=== PATIENT | male | born 1950 | race Caucasian/White ===

== ENCOUNTER 2021-03-23 13:43 | Outpatient (CLI) | payer MEDICARE | END 2021-03-23 13:44 | disposition home or self-care (01) | LOC: CTENTCT 13:43 | PROVIDERS: ATTEND Specialist | DX: J34.2 Deviated nasal septum (principal) | CPT/HCPCS: 70486 ==

== ENCOUNTER 2021-05-08 09:07 | Inpatient (IN) | payer MEDICARE ==
[2021-05-08] MEDS ORDERED: Acetaminophen 325 MG TAB PO PRN (10:13)
[2021-05-08] MEDS ORDERED: Zolpidem Tartrate 5 MG TAB PO PRN (10:13)
[2021-05-08] MEDS ORDERED: Nitroglycerin 0.4 MG TAB (25 Tab Bottle) SL PRN (10:13)
[2021-05-08] MEDS ORDERED: Milk Of Magnesia 30 ML UDCUP PO PRN (10:13)
[2021-05-08] MEDS: Sodium Chloride 0.9% 1,000 ML IV SCH ×2 (10:25→23:52)
[2021-05-08 11:06] LABS: #Basophils 0.1 thou/uL (0.0-0.2); #Eosinphils 0.4 thou/uL (0.0-0.7); #Lymphocytes 1.6 thou/uL (1.20-3.40); #Monocytes 0.5 thou/uL (0.11-0.59); #Neutrophils 4.3 thou/uL (1.40-6.50); %Basophils 0.8 % (0.0-1.0); %Eosinophils 6.3 % (0.0-10.0); %Lymphocytes 23.5 % (21.0-51.0); %Neutrophils 62.4 % (42.0-75.0); Hemoglobin 14.5 g/dL (14.0-18.0); Mean Corpuscular HGB CONC 33.3 g/dL (32.0-36.0); Mean Corpuscular Hemoglobin 32.4 pg (27.0-31.0); Mean Corpuscular Volume 97.2 fL (78.0-98.0); Mean Platelet Volume 7.7 fL (7.4-10.4); Platelet Count 183 thou/uL (130-400); RBC Distribution Width 12.8 % (11.5-14.5); Red Blood Cell (RBC) Count 4.48 mill/uL (4.70-6.10); White Blood Cell (WBC) Count 6.8 thou/uL (4.8-10.8)
[2021-05-08 11:32] LABS: ALT (SGPT) 16 U/L (8-55); AST (SGOT) 18 U/L (5-34); Albumin 3.5 g/dL (3.4-4.8); Alkaline Phosphatase 118 U/L (40-110); Anion Gap 13 mmol/L (10-20); BUN (Urea Nitrogen) 39 mg/dL (8.4-25.7); Bilirubin, Total 0.6 mg/dL (0.2-1.2); Calc. Creatinine Clearance 0 mL/min (70-130); Calcium 9.3 mg/dL (7.8-10.44); Carbon Dioxide 25 mmol/L (23-31); Chloride 103 mmol/L (98-107); Cholesterol 111 mg/dl (< 200 Desired); Globulin 3.5 g/dL (2.4-3.5); Glucose 166 mg/dL (83-110); HDL Cholesterol 28 mg/dL (>60 Neg Risk); LDL Cholesterol, Calculated 36 mg/dL; Potassium 4.4 mmol/L (3.5-5.1); Sodium 137 mmol/L (136-145); Triglycerides 235 mg/dL (Less than 150)
[2021-05-08 12:48] VITALS: BMI 37.8
[2021-05-08] MEDS ORDERED: HOLD HYPOGLYCEMIC MEDS AM OF CATH FS SCH (15:45)
[2021-05-08] MEDS ORDERED: HOLD HYPOGLYCEMIC MEDS AM OF CATH PO SCH (15:45)
[2021-05-08 16:46] LABS: SARS-CoV-2 PCR by NAA Not Detected (NotDetected)
[2021-05-08] MEDS: Simvastatin 20 MG TAB PO SCH (21:48)
[2021-05-08] MEDS: Metoprolol Tartrate 50 MG TAB PO SCH (21:48)
[2021-05-08] MEDS: Sodium Bicarbonate Tab 325 MG TAB PO SCH (21:48)
[2021-05-08] MEDS: Docusate 100 MG CAP PO SCH (21:49)
[2021-05-09] MEDS: Metoprolol Tartrate 50 MG TAB PO SCH ×3 (05:47→22:05)
[2021-05-09] MEDS ORDERED: Sodium Chloride 0.9% 1,000 ML IV SCH (06:00)
[2021-05-09 06:35] LABS: Anion Gap 13 mmol/L (10-20); BUN (Urea Nitrogen) 35 mg/dL (8.4-25.7); Calc. Creatinine Clearance 42 mL/min (70-130); Calcium 9.4 mg/dL (7.8-10.44); Carbon Dioxide 25 mmol/L (23-31); Chloride 102 mmol/L (98-107); Glucose 150 mg/dL (83-110); Potassium 4.4 mmol/L (3.5-5.1); Sodium 136 mmol/L (136-145)
[2021-05-09] MEDS ORDERED: Midazolam HCl 2 mg/2 ml Vial ONE (08:07)
[2021-05-09] MEDS ORDERED: Heparin 10,000 UNITS/ 10 ML VIAL ONE (08:07)
[2021-05-09] MEDS ORDERED: Fentanyl 100 MCG/2 ML VIAL ONE (08:08)
[2021-05-09] MEDS ORDERED: Communication Order-Pharmacy FS SCH (08:45)
[2021-05-09] MEDS: Sodium Chloride 0.9% 1,000 ML IV SCH ×2 (09:48→22:01)
[2021-05-09] MEDS: Sodium Bicarbonate Tab 325 MG TAB PO SCH ×2 (09:49→22:00)
[2021-05-09] MEDS: Tamsulosin HCl 0.4 MG CAP PO SCH (09:50)
[2021-05-09] MEDS: Allopurinol 300 MG TAB PO SCH (09:50)
[2021-05-09] MEDS: Docusate 100 MG CAP PO SCH ×2 (09:50→22:00)
[2021-05-09] MEDS ORDERED: Metoprolol Tartrate 25 MG TAB PO SCH (13:30)
[2021-05-09] MEDS: Simvastatin 20 MG TAB PO SCH (22:03)
[2021-05-10 05:17] LABS: Anion Gap 11 mmol/L (10-20); BUN (Urea Nitrogen) 33 mg/dL (8.4-25.7); Calc. Creatinine Clearance 43 mL/min (70-130); Calcium 8.9 mg/dL (7.8-10.44); Carbon Dioxide 25 mmol/L (23-31); Chloride 105 mmol/L (98-107); Glucose 153 mg/dL (83-110); Potassium 4.4 mmol/L (3.5-5.1); Sodium 137 mmol/L (136-145)
[2021-05-10] MEDS ORDERED: Sodium Chloride 0.9% 1,000 ML IV SCH ×3 (06:00→14:00)
[2021-05-10] MEDS ORDERED: Heparin 10,000 UNITS/ 10 ML VIAL ONE (06:29)
[2021-05-10] MEDS ORDERED: Fentanyl 100 MCG/2 ML VIAL ONE (07:02)
[2021-05-10] MEDS ORDERED: Midazolam HCl 2 mg/2 ml Vial ONE (07:02)
[2021-05-10] MEDS ORDERED: Nitroglycerin 4.9 GM Bottle ONE (07:43)
[2021-05-10] MEDS ORDERED: Protamine Sulfate 50 MG/5 ML VIAL ONE (07:43)
[2021-05-10] MEDS ORDERED: Sodium Chloride 0.9% 200 ML IV PRN (07:59)
[2021-05-10] MEDS ORDERED: Nitroglycerin 0.4 MG TAB (25 Tab Bottle) SL PRN (07:59)
[2021-05-10] MEDS ORDERED: Acetaminophen/Codeine 30-300mg Tablet PO PRN ×2 (07:59)
[2021-05-10] MEDS ORDERED: Iopamidol 370 76% 100 ML VIAL ONE (10:54)
[2021-05-10] MEDS: Sodium Bicarbonate Tab 325 MG TAB PO SCH ×2 (10:57→21:18)
[2021-05-10] MEDS: Tamsulosin HCl 0.4 MG CAP PO SCH (10:58)
[2021-05-10] MEDS: Allopurinol 300 MG TAB PO SCH (10:58)
[2021-05-10] MEDS: Docusate 100 MG CAP PO SCH ×2 (10:58→21:19)
[2021-05-10] MEDS: Metoprolol Tartrate 100 MG TAB PO SCH ×2 (10:59→21:18)
[2021-05-10] MEDS ORDERED: Dextrose 5% in Water 1,000 ML IV PRN (13:53)
[2021-05-10] MEDS ORDERED: Dextrose 50% Abboject 50 ML SYRINGE SLOW IVP PRN (13:53)
[2021-05-10] MEDS ORDERED: HumaLOG 300 UNITS/3 ML VIAL SC PRN ×2 (13:53)
[2021-05-10] MEDS: Simvastatin 20 MG TAB PO SCH (21:18)
[2021-05-11 04:57] LABS: Anion Gap 11 mmol/L (10-20); BUN (Urea Nitrogen) 29 mg/dL (8.4-25.7); Calc. Creatinine Clearance 47 mL/min (70-130); Calcium 8.9 mg/dL (7.8-10.44); Carbon Dioxide 24 mmol/L (23-31); Chloride 107 mmol/L (98-107); Glucose 143 mg/dL (83-110); Potassium 4.2 mmol/L (3.5-5.1); Sodium 138 mmol/L (136-145)
[2021-05-11 08:22] VITALS: TEMP 97.7
[2021-05-11] MEDS: Sodium Bicarbonate Tab 325 MG TAB PO SCH (09:29)
[2021-05-11] MEDS: Allopurinol 300 MG TAB PO SCH (09:29)
[2021-05-11] MEDS: Tamsulosin HCl 0.4 MG CAP PO SCH (09:30)
[2021-05-11] MEDS: Metoprolol Tartrate 100 MG TAB PO SCH (09:30)
[2021-05-11] MEDS: Docusate 100 MG CAP PO SCH (09:30)
[2021-05-11 10:10] VITALS: BP 134/86
== END 2021-05-11 10:00 | disposition home or self-care (01) | DRG 287 ==
LOC: NEURO 09:07 → EDSTATUS 05-09 08:57
PROVIDERS: ADMIT Internal Medicine Cardiovascular Disease; ATTEND Internal Medicine Cardiovascular Disease
PROC: 4A023N7 Measurement of Cardiac Sampling and Pressure, Left Heart, Percutaneous Approach (ICD-10-PCS; principal; 2021-05-10)
PROC: B2111ZZ Fluoroscopy of Multiple Coronary Arteries using Low Osmolar Contrast (ICD-10-PCS; 2021-05-10)
DX: I25.10 Atherosclerotic heart disease of native coronary artery without angina pectoris (principal); N18.4 Chronic kidney disease, stage 4 (severe); K92.2 Gastrointestinal hemorrhage, unspecified; Z20.822 Contact with and (suspected) exposure to COVID-19; E11.22 Type 2 diabetes mellitus with diabetic chronic kidney disease; I12.9 Hypertensive chronic kidney disease with stage 1 through stage 4 chronic kidney disease, or unspecified chronic kidney disease; I45.10 Unspecified right bundle-branch block; I48.0 Paroxysmal atrial fibrillation; E78.00 Pure hypercholesterolemia, unspecified; R94.39 Abnormal result of other cardiovascular function study; E78.1 Pure hyperglyceridemia; Z88.8 Allergy status to other drugs, medicaments and biological substances; Z87.19 Personal history of other diseases of the digestive system; Z79.01 Long term (current) use of anticoagulants; Z79.899 Other long term (current) drug therapy
CPT/HCPCS: 36415; 36416; 71045; 76775; 80048; 80053; 80061; 85025; 85347; 93005; 93010; 93454; 93798; 99152; 99153; J1644; J2250; J2720; J3010; J7050; Q9967; U0003; U0005

== ENCOUNTER 2021-06-04 13:40 | Outpatient (CLI) | payer MEDICARE ==
[2021-06-04 15:32] LABS: Hemoglobin 13.6 g/dL (13.5-17.5); Mean Corpuscular HGB CONC 32.2 g/dL (32.0-36.0); Mean Corpuscular Hemoglobin 31.9 pg (27.0-33.0); Mean Corpuscular Volume 99.1 fl (81.2-95.1); Mean Platelet Volume 10.7 fl (7.4-10.4); Platelet Count 178 10x3/uL (150-450); RBC Distribution Width 14.2 % (11.5-14.5); Red Blood Cell (RBC) Count 4.27 10x6/uL (4.32-5.72); White Blood Cell (WBC) Count 6.9 10x3/uL (3.5-10.5)
[2021-06-04 16:08] LABS: Anion Gap 15 mmol/L (10-20); BUN (Urea Nitrogen) 50 mg/dL (8.4-25.7); Calc. Creatinine Clearance 0 mL/min (70-130); Carbon Dioxide 26 mmol/L (23-31); Chloride 102 mmol/L (98-107); Glucose 225 mg/dL (83-110); Sodium 138 mmol/L (136-145)
[2021-06-05 07:27] LABS: SARS-CoV-2 PCR by NAA Not Detected (NotDetected)
== END 2021-06-04 13:41 | disposition home or self-care (01) ==
LOC: LABBT 13:40
PROVIDERS: ATTEND Specialist
DX: Z01.818 Encounter for other preprocedural examination (principal); Z20.822 Contact with and (suspected) exposure to COVID-19
CPT/HCPCS: 80048; 85027; 93005; U0003; U0005; 93010

== ENCOUNTER 2021-06-07 10:22 | Day surgery (SDC) | payer MEDICARE ==
[2021-06-04 11:52] VITALS: BMI 37.3
[2021-06-07] MEDS ORDERED: AFRIN NASAL MIST 15 ML BOT ONE (11:02)
[2021-06-07] MEDS ORDERED: Oxymetazoline HCl 0.05% (30 ML BOT) ONE (11:59)
[2021-06-07] MEDS ORDERED: EPINEPHrine 1 MG/ML AMP ONE ×2 (11:59→12:41)
[2021-06-07] MEDS ORDERED: Xylocaine 1% w/ Epi 1:100K 10 ML VIAL ONE (11:59)
[2021-06-07] MEDS ORDERED: Rocuronium Bromide 10 MG/ML (10ML VIAL) ONE (12:00)
[2021-06-07] MEDS ORDERED: Lidocaine 1% PF 5 ML VIAL ONE (12:00)
[2021-06-07] MEDS ORDERED: Glycopyrrolate 0.2 MG/ML 5 ML SYRINGE ONE (12:00)
[2021-06-07] MEDS ORDERED: Dexamethasone 20 MG/5 ML VIAL ONE (12:00)
[2021-06-07] MEDS ORDERED: Ondansetron PF 4 MG/2 ML Vial ONE (12:00)
[2021-06-07] MEDS ORDERED: PROPOFOL 200 MG/20 ML VIAL ONE (12:00)
[2021-06-07] MEDS ORDERED: Fentanyl 100 MCG/2 ML VIAL ONE (12:05)
[2021-06-07] MEDS ORDERED: hydrALAZINE 20 MG/ML VIAL ONE (13:17)
== END 2021-06-07 14:55 | disposition home or self-care (01) ==
LOC: SDC 10:22
PROVIDERS: ATTEND Specialist
PROC: 8E09XBZ Computer Assisted Procedure of Head and Neck Region (ICD-10-PCS; principal; 2021-06-07)
PROC: 09BT8ZZ Excision of Left Frontal Sinus, Via Natural or Artificial Opening Endoscopic (ICD-10-PCS; 2021-06-07)
PROC: 09BR8ZZ Excision of Left Maxillary Sinus, Via Natural or Artificial Opening Endoscopic (ICD-10-PCS; 2021-06-07)
PROC: 09TV8ZZ Resection of Left Ethmoid Sinus, Via Natural or Artificial Opening Endoscopic (ICD-10-PCS; 2021-06-07)
DX: D14.0 Benign neoplasm of middle ear, nasal cavity and accessory sinuses (principal); J32.4 Chronic pansinusitis; J34.89 Other specified disorders of nose and nasal sinuses; J34.3 Hypertrophy of nasal turbinates; M17.0 Bilateral primary osteoarthritis of knee; M19.021 Primary osteoarthritis, right elbow; M19.022 Primary osteoarthritis, left elbow; I12.9 Hypertensive chronic kidney disease with stage 1 through stage 4 chronic kidney disease, or unspecified chronic kidney disease; E11.22 Type 2 diabetes mellitus with diabetic chronic kidney disease; N18.9 Chronic kidney disease, unspecified; D63.1 Anemia in chronic kidney disease; E78.00 Pure hypercholesterolemia, unspecified; I48.91 Unspecified atrial fibrillation; M10.9 Gout, unspecified; F17.220 Nicotine dependence, chewing tobacco, uncomplicated; Z79.01 Long term (current) use of anticoagulants; Z79.84 Long term (current) use of oral hypoglycemic drugs; Z79.899 Other long term (current) drug therapy; Z88.6 Allergy status to analgesic agent
CPT/HCPCS: 31253; 31267; 61782; C1713; 88305; J0171; J0360; J1100; J2405; J2704; J3010

== ENCOUNTER 2021-06-20 19:53 | Emergency (ER) | payer MEDICARE | END 2021-06-20 22:54 | disposition home or self-care (01) | LOC: ERS 19:53 | DX: R04.0 Epistaxis (principal); I10 Essential (primary) hypertension; E11.9 Type 2 diabetes mellitus without complications; F17.220 Nicotine dependence, chewing tobacco, uncomplicated | CPT/HCPCS: 99283 ==

== ENCOUNTER 2021-07-16 06:46 | Outpatient (CLI) | payer MEDICARE ==
[2021-07-16 07:45] LABS: Hemoglobin 11.4 g/dL (13.5-17.5); Mean Corpuscular HGB CONC 31.7 g/dL (32.0-36.0); Mean Corpuscular Hemoglobin 31.4 pg (27.0-33.0); Mean Corpuscular Volume 99.2 fl (81.2-95.1); Mean Platelet Volume 9.9 fl (7.4-10.4); Platelet Count 204 10x3/uL (150-450); RBC Distribution Width 14.4 % (11.5-14.5); Red Blood Cell (RBC) Count 3.63 10x6/uL (4.32-5.72); White Blood Cell (WBC) Count 7.5 10x3/uL (3.5-10.5)
[2021-07-16 07:59] LABS: Anion Gap 14 mmol/L (10-20); BUN (Urea Nitrogen) 34 mg/dL (8.4-25.7); Calc. Creatinine Clearance 0 mL/min (70-130); Calcium 8.6 mg/dL (7.8-10.44); Carbon Dioxide 27 mmol/L (23-31); Chloride 102 mmol/L (98-107); Glucose 253 mg/dL (83-110); Potassium 4.8 mmol/L (3.5-5.1); Sodium 138 mmol/L (136-145)
[2021-07-16 21:46] LABS: SARS-CoV-2 PCR by NAA Not Detected (NotDetected)
== END 2021-07-16 06:47 | disposition home or self-care (01) ==
LOC: LABBT 06:46
PROVIDERS: ATTEND Specialist
DX: Z01.812 Encounter for preprocedural laboratory examination (principal); D36.7 Benign neoplasm of other specified sites; R04.0 Epistaxis; J32.0 Chronic maxillary sinusitis; J34.89 Other specified disorders of nose and nasal sinuses; J34.3 Hypertrophy of nasal turbinates; Z20.822 Contact with and (suspected) exposure to COVID-19
CPT/HCPCS: 80048; 85027; U0003; U0005

== ENCOUNTER 2021-07-19 10:23 | Day surgery (SDC) | payer OTHER ==
[2021-07-17 13:11] VITALS: BMI 36.3
[2021-07-19] MEDS ORDERED: EPINEPHrine 1 MG/ML AMP ONE ×2 (10:51→12:11)
[2021-07-19] MEDS ORDERED: AFRIN NASAL MIST 15 ML BOT ONE ×2 (10:51→10:53)
[2021-07-19] MEDS ORDERED: Xylocaine 1% w/ Epi 1:100K 10 ML VIAL ONE (10:51)
[2021-07-19] MEDS ORDERED: Fentanyl 250 MCG/5 ML VIAL ONE ×2 (11:31→13:06)
[2021-07-19] MEDS ORDERED: PROPOFOL 200 MG/20 ML VIAL ONE (11:52)
[2021-07-19] MEDS ORDERED: GLYCOPYRROLATE/PF 0.2 MG/ML VIAL ONE (11:52)
[2021-07-19] MEDS ORDERED: Lidocaine 1% PF 5 ML VIAL ONE (11:52)
[2021-07-19] MEDS ORDERED: Dexamethasone 20 MG/5 ML VIAL ONE (11:52)
[2021-07-19] MEDS ORDERED: Esmolol 100 MG/10 ML VIAL ONE (11:52)
[2021-07-19] MEDS ORDERED: Ondansetron PF 4 MG/2 ML Vial ONE (11:52)
[2021-07-19] MEDS ORDERED: PHENYLEPHRINE-NS 100 MCG/ML 10 ML SYRINGE ONE (11:52)
[2021-07-19] MEDS ORDERED: Rocuronium Bromide 10 MG/ML (10ML VIAL) ONE (11:52)
[2021-07-19] MEDS ORDERED: methylPREDNISolone Acetate 40 mg/ml Vial ONE (12:20)
[2021-07-19] MEDS ORDERED: Bacitracin Zinc Ointment 30 gm TUBE ONE (12:32)
== END 2021-07-19 14:10 | disposition home or self-care (01) ==
LOC: SDC 10:23
PROVIDERS: ATTEND Specialist
PROC: 09BR8ZZ Excision of Left Maxillary Sinus, Via Natural or Artificial Opening Endoscopic (ICD-10-PCS; principal; 2021-07-19)
DX: D14.0 Benign neoplasm of middle ear, nasal cavity and accessory sinuses (principal); R04.0 Epistaxis; J32.0 Chronic maxillary sinusitis; J34.89 Other specified disorders of nose and nasal sinuses; J34.3 Hypertrophy of nasal turbinates; I12.9 Hypertensive chronic kidney disease with stage 1 through stage 4 chronic kidney disease, or unspecified chronic kidney disease; E11.22 Type 2 diabetes mellitus with diabetic chronic kidney disease; N18.9 Chronic kidney disease, unspecified; I48.91 Unspecified atrial fibrillation; M10.9 Gout, unspecified; F17.220 Nicotine dependence, chewing tobacco, uncomplicated; Z79.01 Long term (current) use of anticoagulants; Z79.84 Long term (current) use of oral hypoglycemic drugs; Z79.899 Other long term (current) drug therapy; Z88.6 Allergy status to analgesic agent
CPT/HCPCS: 31267; J3490; 88305; J0171; J1100; J2405; J2704; J2920; J3010

== ENCOUNTER 2022-10-03 06:40 | Outpatient (CLI) | payer OTHER | END 2022-10-03 06:41 | disposition home or self-care (01) | LOC: ULT 06:40 | PROVIDERS: ATTEND Internal Medicine Nephrology | DX: N17.9 Acute kidney failure, unspecified (principal); N18.4 Chronic kidney disease, stage 4 (severe) | CPT/HCPCS: 76770 ==